=== PATIENT | male | born 1955 | race Caucasian/White ===

== ENCOUNTER 2021-05-27 18:25 | Inpatient (IN) | payer OTHER ==
[2021-05-27 19:11] VITALS: BMI 15.7
[2021-05-27] MEDS ORDERED: NALOXONE (NARCAN) HCL 4 MG/0.1 ML SPRAY NS PRN (21:20)
[2021-05-27] MEDS ORDERED: P-EPHED 60MG/TRIPROLIDI 2.5MG TABLET PO PRN (21:20)
[2021-05-27] MEDS ORDERED: MENTHOL/PHENOL 1 EACH UD MM PRN (21:20)
[2021-05-27] MEDS ORDERED: ONDANSETRON *ODT* 4 MG TABLET SL PRN (21:20)
[2021-05-27] MEDS ORDERED: MAGNESIUM HYDROX 2400MG/30ML ORAL SUSPENSION 30 ML CUP PO PRN (21:20)
[2021-05-27] MEDS ORDERED: MAGNESIUM CITRATE 300 ML BOTTLE PO PRN (21:20)
[2021-05-27] MEDS ORDERED: NALOXONE HCL 0.4 MG/ML VIAL IM PRN (21:20)
[2021-05-27] MEDS ORDERED: ACETAMINOPHEN 325 MG TABLET (FP) PO PRN ×2 (21:20)
[2021-05-27] MEDS ORDERED: NICOTINE POLACRILEX 2 MG GUM BUC PRN (21:20)
[2021-05-27] MEDS ORDERED: guaiFENesin 200 MG/10 ML 10 ML UNIT-DOSE CUPS PO PRN (21:20)
[2021-05-27] MEDS ORDERED: BISMUTH SUBSALICYLATE 524 MG/30 ML PO PRN (21:20)
[2021-05-27] MEDS ORDERED: ALBUTEROL SO4 0.083% IH SOL 2.5 MG/3 ML VIAL.NEB. NEB ONE (22:04)
[2021-05-27] MEDS: MELATONIN 5 MG TABLETS PO SCH (22:49)
[2021-05-27] MEDS: THIAMINE HCL 100 MG TABLET (FP) PO SCH (22:49)
[2021-05-28] MEDS ORDERED: ALBUTEROL SO4 HFA INHALER IH ONE (00:45)
[2021-05-28] MEDS: ALBUTEROL SO4 HFA INHALER IH PRN ×3 (00:48→12:12)
[2021-05-28 09:24] LABS: HEMOGLOBIN 10.6 GM/dL (11.7-16.9); MCH 29.3 pg (25.7-33.7); MCHC 33.3 g/dl (32.0-35.9); MEAN PLT VOLUME 6.5 fl (7.5-11.1); PLATELET COUNT 282 10^3/uL (134-434); RBC 3.64 M/mm3 (4.00-5.60); RDW 20.7 % (11.9-15.9)
[2021-05-28 10:03] LABS: ALBUMIN 3.2 g/dl (3.4-5.0); BLOOD UREA NITROGEN 23.2 mg/dL (7-18); CALCIUM 8.3 mg/dL (8.5-10.1)
[2021-05-28 10:08] LABS: BILIRUBIN,TOTAL 0.3 mg/dL (0.2-1); TOT PROT 6.3 g/dl (6.4-8.2)
[2021-05-28 10:10] LABS: CREATININE 0.7 mg/dL (0.55-1.3)
[2021-05-28] MEDS: PRENATAL VITAMINS W/ FOLIC ACID TABLET (FP) PO SCH (11:00)
[2021-05-28] MEDS ORDERED: ALBUTEROL SO4 0.083% IH SOL 2.5 MG/3 ML VIAL.NEB. NEB PRN (11:37)
[2021-05-28] MEDS ORDERED: METHADONE HCL 10 MG TABLET (FOR DETOX USE ONLY) PO ONE ×2 (12:00→18:00)
[2021-05-28] MEDS: DICYCLOMINE HCL 10 MG CAPSULE PO PRN (17:56)
[2021-05-28] MEDS: MELATONIN 5 MG TABLETS PO SCH (23:30)
[2021-05-28] MEDS: THIAMINE HCL 100 MG TABLET (FP) PO SCH (23:30)
[2021-05-29] MEDS: ALBUTEROL SO4 HFA INHALER IH PRN ×3 (08:20→23:43)
[2021-05-29] MEDS ORDERED: METHADONE HCL 10 MG TABLET (FOR DETOX USE ONLY) ONE (09:12)
[2021-05-29] MEDS ORDERED: METHADONE HCL 5 MG TABLET (FOR DETOX USE ONLY) ONE (09:12)
[2021-05-29] MEDS: PRENATAL VITAMINS W/ FOLIC ACID TABLET (FP) PO SCH (09:47)
[2021-05-29] MEDS: MAG HYDROX/AL HYDROX/SIMETH 30 ML UNIT-DOSE CUP PO PRN ×2 (09:47→17:16)
[2021-05-29] MEDS: METHOCARBAMOL 500 MG TABLET PO PRN (09:48)
[2021-05-29] MEDS ORDERED: METHADONE (DETOX) 10 MG, METHADONE (DETOX) 5 MG PO ONE (10:00)
[2021-05-29 10:07] LABS: BLOOD UREA NITROGEN 19.1 mg/dL (7-18)
[2021-05-29] MEDS ORDERED: COVID-19 VAC,AD26(JANSSEN)/PF 0.5 ML IM ONE (13:00)
[2021-05-29] MEDS ORDERED: diazePAM 5 MG TABLET PO PRN (13:17)
[2021-05-29] MEDS: DICYCLOMINE HCL 10 MG CAPSULE PO PRN (17:16)
[2021-05-29] MEDS: THIAMINE HCL 100 MG TABLET (FP) PO SCH (22:27)
[2021-05-29] MEDS: MELATONIN 5 MG TABLETS PO SCH (22:27)
[2021-05-30] MEDS ORDERED: METHADONE HCL 10 MG TABLET (FOR DETOX USE ONLY) ONE (09:13)
[2021-05-30] MEDS ORDERED: METHADONE HCL 5 MG TABLET (FOR DETOX USE ONLY) ONE (09:13)
[2021-05-30] MEDS ORDERED: METHADONE (DETOX) 10 MG, METHADONE (DETOX) 5 MG PO ONE (10:00)
[2021-05-30] MEDS: PRENATAL VITAMINS W/ FOLIC ACID TABLET (FP) PO SCH (10:17)
[2021-05-30] MEDS: FERROUS SO4 325 MG TABLET (FP) PO SCH (10:17)
[2021-05-30] MEDS: ALBUTEROL SO4 HFA INHALER IH PRN ×2 (14:44→21:15)
[2021-05-30] MEDS: IBUPROFEN 400 MG TABLET (FP) PO PRN (20:10)
[2021-05-30] MEDS: MELATONIN 5 MG TABLETS PO SCH (22:23)
[2021-05-30] MEDS: METHOCARBAMOL 500 MG TABLET PO PRN (22:23)
[2021-05-30] MEDS: THIAMINE HCL 100 MG TABLET (FP) PO SCH (22:23)
[2021-05-31] MEDS: ALBUTEROL SO4 HFA INHALER IH PRN ×2 (08:07→18:46)
[2021-05-31] MEDS ORDERED: METHADONE HCL 10 MG TABLET (FOR DETOX USE ONLY) PO ONE (10:00)
[2021-05-31] MEDS: PRENATAL VITAMINS W/ FOLIC ACID TABLET (FP) PO SCH (10:28)
[2021-05-31] MEDS: FERROUS SO4 325 MG TABLET (FP) PO SCH (10:28)
[2021-05-31] MEDS: METHOCARBAMOL 500 MG TABLET PO PRN ×2 (10:28→18:46)
[2021-05-31] MEDS: MAG HYDROX/AL HYDROX/SIMETH 30 ML UNIT-DOSE CUP PO PRN (20:18)
[2021-05-31] MEDS: MELATONIN 5 MG TABLETS PO SCH (22:04)
[2021-05-31] MEDS: THIAMINE HCL 100 MG TABLET (FP) PO SCH (22:04)
[2021-06-01] MEDS ORDERED: METHADONE HCL 10 MG TABLET (FOR DETOX USE ONLY) PO ONE (05:00)
[2021-06-01] MEDS ORDERED: METHADONE HCL 5 MG TABLET PO ONE (05:00)
[2021-06-01] MEDS: FERROUS SO4 325 MG TABLET (FP) PO SCH (10:16)
[2021-06-01] MEDS: PRENATAL VITAMINS W/ FOLIC ACID TABLET (FP) PO SCH (10:16)
[2021-06-01] MEDS: IBUPROFEN 400 MG TABLET (FP) PO PRN (12:34)
[2021-06-01] MEDS: METHOCARBAMOL 500 MG TABLET PO PRN (12:34)
[2021-06-01 13:00] VITALS: BP 94/62; PULSE 94; TEMP 98.1
[2021-06-01] MEDS: ALBUTEROL SO4 HFA INHALER IH PRN (14:47)
== END 2021-06-01 15:14 | disposition other institution (70) | DRG 773 ==
LOC: YASAS 18:25 → Y6N 21:37
PROVIDERS: ADMIT Allergy & Immunology; ATTEND Allergy & Immunology
PROC: HZ2ZZZZ Detoxification Services for Substance Abuse Treatment (ICD-10-PCS; principal; 2021-05-27)
DX: F11.23 Opioid dependence with withdrawal (principal); F19.282 Other psychoactive substance dependence with psychoactive substance-induced sleep disorder; F42.4 Excoriation (skin-picking) disorder; Z21 Asymptomatic human immunodeficiency virus [HIV] infection status; J45.909 Unspecified asthma, uncomplicated; B18.2 Chronic viral hepatitis C; Z87.891 Personal history of nicotine dependence; Z91.81 History of falling; Z99.89 Dependence on other enabling machines and devices; Z91.010 Allergy to peanuts
CPT/HCPCS: 0031A; 36415; 80053; 82607; 83540; 84520; 85027; 86780; 91303; 93005; 93010; 94640; C9803; Q0162; U0003; U0005

== ENCOUNTER 2021-06-01 15:30 | Inpatient (IN) | payer OTHER ==
[2021-06-01] MEDS ORDERED: ACETAMINOPHEN 325 MG TABLET (FP) PO PRN (16:43)
[2021-06-01] MEDS ORDERED: NICOTINE POLACRILEX 2 MG GUM BUC PRN (16:43)
[2021-06-01] MEDS ORDERED: P-EPHED 60MG/TRIPROLIDI 2.5MG TABLET PO PRN (16:43)
[2021-06-01] MEDS ORDERED: MAGNESIUM CITRATE 300 ML BOTTLE PO PRN (16:43)
[2021-06-01] MEDS ORDERED: MENTHOL/PHENOL 1 EACH UD MM PRN (16:43)
[2021-06-01] MEDS ORDERED: LOPERAMIDE HCL 2 MG CAPSULE PO PRN (16:43)
[2021-06-01] MEDS ORDERED: MAGNESIUM HYDROX 2400MG/30ML ORAL SUSPENSION 30 ML CUP PO PRN (16:43)
[2021-06-01] MEDS ORDERED: guaiFENesin 200 MG/10 ML 10 ML UNIT-DOSE CUPS PO PRN (16:43)
[2021-06-01] MEDS: IBUPROFEN 400 MG TABLET (FP) PO PRN (17:08)
[2021-06-01] MEDS: ALBUTEROL SO4 HFA INHALER IH PRN (18:05)
[2021-06-01] MEDS: hydrOXYzine PAMOATE 25 MG CAPSULE (FP) PO PRN (21:17)
[2021-06-01] MEDS: MELATONIN 5 MG TABLETS PO SCH (21:17)
[2021-06-01] MEDS: THIAMINE HCL 100 MG TABLET (FP) PO SCH (21:17)
[2021-06-01] MEDS: BACITRACIN 0.9 GM PACKET TP SCH (21:18)
[2021-06-02] MEDS: PRENATAL VITAMINS W/ FOLIC ACID TABLET (FP) PO SCH (09:24)
[2021-06-02] MEDS: BACITRACIN 0.9 GM PACKET TP SCH ×2 (09:24→21:03)
[2021-06-02] MEDS: NICOTINE 7 MG/24 HOURS TOPICAL PATCH TD SCH (09:24)
[2021-06-02] MEDS: IBUPROFEN 400 MG TABLET (FP) PO PRN (09:25)
[2021-06-02] MEDS ORDERED: PT OWN MED DRAWER 7, Y5N ONE (18:55)
[2021-06-02] MEDS: ALBUTEROL SO4 HFA INHALER IH PRN ×2 (18:57→23:12)
[2021-06-02] MEDS: hydrOXYzine PAMOATE 25 MG CAPSULE (FP) PO PRN (21:03)
[2021-06-02] MEDS: MELATONIN 5 MG TABLETS PO SCH (21:03)
[2021-06-02] MEDS: THIAMINE HCL 100 MG TABLET (FP) PO SCH (21:03)
[2021-06-03] MEDS: ALBUTEROL SO4 HFA INHALER IH PRN ×4 (08:12→22:58)
[2021-06-03] MEDS: NICOTINE 7 MG/24 HOURS TOPICAL PATCH TD SCH (09:33)
[2021-06-03] MEDS: PRENATAL VITAMINS W/ FOLIC ACID TABLET (FP) PO SCH (09:33)
[2021-06-03] MEDS: BACITRACIN 0.9 GM PACKET TP SCH ×2 (09:33→21:17)
[2021-06-03] MEDS: MAG HYDROX/AL HYDROX/SIMETH 30 ML UNIT-DOSE CUP PO PRN (18:41)
[2021-06-03] MEDS: hydrOXYzine PAMOATE 25 MG CAPSULE (FP) PO PRN (21:17)
[2021-06-03] MEDS: THIAMINE HCL 100 MG TABLET (FP) PO SCH (21:17)
[2021-06-03] MEDS: MELATONIN 5 MG TABLETS PO SCH (21:17)
[2021-06-03] MEDS: IBUPROFEN 400 MG TABLET (FP) PO PRN (22:59)
[2021-06-04] MEDS: ALBUTEROL SO4 HFA INHALER IH PRN ×3 (07:57→19:18)
[2021-06-04] MEDS: PRENATAL VITAMINS W/ FOLIC ACID TABLET (FP) PO SCH (09:48)
[2021-06-04] MEDS: NICOTINE 7 MG/24 HOURS TOPICAL PATCH TD SCH (09:48)
[2021-06-04] MEDS: BACITRACIN 0.9 GM PACKET TP SCH ×2 (09:48→21:06)
[2021-06-04] MEDS: hydrOXYzine PAMOATE 25 MG CAPSULE (FP) PO PRN ×2 (13:10→20:15)
[2021-06-04] MEDS: ALBUTEROL SO4 0.083% IH SOL 2.5 MG/3 ML VIAL.NEB. NEB PRN (17:13)
[2021-06-04] MEDS: IBUPROFEN 400 MG TABLET (FP) PO PRN (19:17)
[2021-06-04] MEDS: THIAMINE HCL 100 MG TABLET (FP) PO SCH (21:05)
[2021-06-04] MEDS: MELATONIN 5 MG TABLETS PO SCH (21:05)
[2021-06-05] MEDS ORDERED: PT OWN MED DRAWER 7, Y5N ONE ×2 (01:38→09:19)
[2021-06-05 07:02] VITALS: BP 105/72; PULSE 95; TEMP 97.6
[2021-06-05] MEDS: MAG HYDROX/AL HYDROX/SIMETH 30 ML UNIT-DOSE CUP PO PRN (07:11)
[2021-06-05] MEDS: ALBUTEROL SO4 HFA INHALER IH PRN (09:19)
[2021-06-05] MEDS: PRENATAL VITAMINS W/ FOLIC ACID TABLET (FP) PO SCH (09:20)
[2021-06-05] MEDS: BACITRACIN 0.9 GM PACKET TP SCH (09:20)
[2021-06-05] MEDS: NICOTINE 7 MG/24 HOURS TOPICAL PATCH TD SCH (09:20)
[2021-06-05] MEDS: ALBUTEROL SO4 0.083% IH SOL 2.5 MG/3 ML VIAL.NEB. NEB PRN (10:09)
== END 2021-06-05 10:55 | disposition home or self-care (01) | DRG 773 ==
LOC: YASAS 15:30 → Y5N 15:35
PROVIDERS: ADMIT Allergy & Immunology; ATTEND Allergy & Immunology
PROC: HZ2ZZZZ Detoxification Services for Substance Abuse Treatment (ICD-10-PCS; principal; 2021-06-01)
DX: F11.20 Opioid dependence, uncomplicated (principal); F17.210 Nicotine dependence, cigarettes, uncomplicated; F42.4 Excoriation (skin-picking) disorder; Z21 Asymptomatic human immunodeficiency virus [HIV] infection status; R64 Cachexia; D50.9 Iron deficiency anemia, unspecified; J45.20 Mild intermittent asthma, uncomplicated; R26.2 Difficulty in walking, not elsewhere classified; Z99.89 Dependence on other enabling machines and devices
CPT/HCPCS: 94640

== ENCOUNTER 2021-10-13 12:58 | Inpatient (IN) | payer OTHER ==
[2021-10-13] MEDS ORDERED: MAGNESIUM HYDROX 2400MG/30ML ORAL SUSPENSION 30 ML CUP PO PRN (13:33)
[2021-10-13] MEDS ORDERED: MAG HYDROX/AL HYDROX/SIMETH 30 ML UNIT-DOSE CUP PO PRN (13:33)
[2021-10-13] MEDS ORDERED: ONDANSETRON *ODT* 4 MG TABLET SL PRN (13:33)
[2021-10-13] MEDS ORDERED: ACETAMINOPHEN 325 MG TABLET (FP) PO PRN ×2 (13:33)
[2021-10-13] MEDS ORDERED: cloNIDine HCL 0.1 MG TABLET PO PRN (13:33)
[2021-10-13] MEDS ORDERED: MAGNESIUM CITRATE 300 ML BOTTLE PO PRN (13:33)
[2021-10-13] MEDS ORDERED: IBUPROFEN 400 MG TABLET (FP) PO PRN (13:33)
[2021-10-13] MEDS ORDERED: MENTHOL/PHENOL 1 EACH UD MM PRN (13:33)
[2021-10-13] MEDS ORDERED: NICOTINE 10 MG CARTRIDGE (INHALER) IH PRN (13:33)
[2021-10-13] MEDS ORDERED: METHOCARBAMOL 500 MG TABLET PO PRN (13:33)
[2021-10-13] MEDS ORDERED: methaDONE HCL 10 MG TABLET (FOR DETOX USE ONLY) PO ONE (13:33)
[2021-10-13] MEDS ORDERED: BISMUTH SUBSALICYLATE 262 MG/15 ML BTL PO PRN (13:33)
[2021-10-13 13:43] VITALS: BMI 15.3
[2021-10-13] MEDS: NICOTINE 14 MG/24 HOURS TOPICAL PATCH TD SCH (15:17)
[2021-10-13] MEDS: PRENATAL VITAMINS W/ FOLIC ACID TABLET (FP) PO SCH (15:17)
[2021-10-13 16:56] LABS: HEMATOCRIT 36.6 % (35.4-49); MCH 30.5 pg (25.7-33.7); MCHC 32.8 g/dl (32.0-35.9); MEAN CELL VOLUME 92.8 fl (80-96); MEAN PLT VOLUME 6.6 fl (7.5-11.1); PLATELET COUNT 290 10^3/uL (134-434); RBC 3.95 M/mm3 (4.00-5.60); RDW 16.9 % (11.9-15.9); WHITE BLOOD COUNT 5.7 K/mm3 (4.0-10.0)
[2021-10-13 16:58] LABS: ALBUMIN 3.6 g/dl (3.4-5.0); BLOOD UREA NITROGEN 29.8 mg/dL (7-18)
[2021-10-13 17:01] LABS: CREATININE 0.9 mg/dL (0.55-1.3)
[2021-10-13 17:02] LABS: BILIRUBIN,TOTAL 0.4 mg/dL (0.2-1); TOT PROT 7.1 g/dl (6.4-8.2)
[2021-10-13] MEDS: ALBUTEROL SO4 HFA INHALER IH PRN (17:24)
[2021-10-13] MEDS: MELATONIN 5 MG TABLETS PO SCH (22:29)
[2021-10-13] MEDS: THIAMINE HCL 100 MG TABLET (FP) PO SCH (22:29)
[2021-10-13] MEDS: BUDESONIDE/FORMETEROL FUMARATE 80/4.5 mcg INHALER IH SCH (22:30)
[2021-10-13] MEDS: BACITRACIN 0.9 GM PACKET TP SCH (22:30)
[2021-10-14] MEDS ORDERED: methaDONE HCL 10 MG TABLET (FOR DETOX USE ONLY) ONE (08:45)
[2021-10-14] MEDS: ALBUTEROL SO4 HFA INHALER IH PRN ×2 (08:47→17:23)
[2021-10-14] MEDS: NICOTINE 14 MG/24 HOURS TOPICAL PATCH TD SCH (10:25)
[2021-10-14] MEDS: PRENATAL VITAMINS W/ FOLIC ACID TABLET (FP) PO SCH (10:25)
[2021-10-14] MEDS: BUDESONIDE/FORMETEROL FUMARATE 80/4.5 mcg INHALER IH SCH ×2 (10:25→22:12)
[2021-10-14] MEDS: BACITRACIN 0.9 GM PACKET TP SCH ×2 (10:25→22:12)
[2021-10-14] MEDS ORDERED: PNEUMOCOCCAL 23 VACCINE 0.5 ML VIAL IM ONE (15:33)
[2021-10-14] MEDS: MELATONIN 5 MG TABLETS PO SCH (22:12)
[2021-10-14] MEDS: THIAMINE HCL 100 MG TABLET (FP) PO SCH (22:12)
[2021-10-15] MEDS: ALBUTEROL SO4 HFA INHALER IH PRN ×2 (05:15→15:36)
[2021-10-15] MEDS: BUDESONIDE/FORMETEROL FUMARATE 80/4.5 mcg INHALER IH SCH ×3 (08:33→22:10)
[2021-10-15] MEDS: hydrOXYzine PAMOATE 25 MG CAPSULE (FP) PO PRN (08:55)
[2021-10-15] MEDS ORDERED: methaDONE HCL 10 MG TABLET (FOR DETOX USE ONLY) PO ONE (10:00)
[2021-10-15] MEDS: PRENATAL VITAMINS W/ FOLIC ACID TABLET (FP) PO SCH (10:20)
[2021-10-15] MEDS: BACITRACIN 0.9 GM PACKET TP SCH ×2 (10:20→22:10)
[2021-10-15] MEDS: NICOTINE 14 MG/24 HOURS TOPICAL PATCH TD SCH (10:21)
[2021-10-15] MEDS ORDERED: PNEUMOC 13-VAL CONJ-DIP CRM/PF 0.5 ML DISP.SYRIN IM ONE (12:00)
[2021-10-15] MEDS: THIAMINE HCL 100 MG TABLET (FP) PO SCH (22:10)
[2021-10-15] MEDS: MELATONIN 5 MG TABLETS PO SCH (22:10)
[2021-10-16] MEDS ORDERED: methaDONE HCL 10 MG TABLET (FOR DETOX USE ONLY) ONE (08:58)
[2021-10-16] MEDS: BACITRACIN 0.9 GM PACKET TP SCH ×2 (10:25→22:16)
[2021-10-16] MEDS: PRENATAL VITAMINS W/ FOLIC ACID TABLET (FP) PO SCH (10:25)
[2021-10-16] MEDS: BUDESONIDE/FORMETEROL FUMARATE 80/4.5 mcg INHALER IH SCH ×2 (10:25→22:17)
[2021-10-16] MEDS: NICOTINE 14 MG/24 HOURS TOPICAL PATCH TD SCH (10:27)
[2021-10-16] MEDS: ALBUTEROL SO4 HFA INHALER IH PRN ×2 (12:56→16:43)
[2021-10-16] MEDS: hydrOXYzine PAMOATE 25 MG CAPSULE (FP) PO PRN (17:43)
[2021-10-16] MEDS: MELATONIN 5 MG TABLETS PO SCH (22:16)
[2021-10-16] MEDS: THIAMINE HCL 100 MG TABLET (FP) PO SCH (22:16)
[2021-10-17] MEDS ORDERED: methaDONE HCL 10 MG TABLET (FOR DETOX USE ONLY) PO ONE (10:00)
[2021-10-17] MEDS: BACITRACIN 0.9 GM PACKET TP SCH ×2 (10:10→22:11)
[2021-10-17] MEDS: NICOTINE 14 MG/24 HOURS TOPICAL PATCH TD SCH (10:11)
[2021-10-17] MEDS: BUDESONIDE/FORMETEROL FUMARATE 80/4.5 mcg INHALER IH SCH ×2 (10:11→22:10)
[2021-10-17] MEDS: PRENATAL VITAMINS W/ FOLIC ACID TABLET (FP) PO SCH (10:11)
[2021-10-17] MEDS: ALBUTEROL SO4 HFA INHALER IH PRN (18:10)
[2021-10-17] MEDS: MELATONIN 5 MG TABLETS PO SCH (22:10)
[2021-10-17] MEDS: THIAMINE HCL 100 MG TABLET (FP) PO SCH (22:11)
[2021-10-17] MEDS: hydrOXYzine PAMOATE 25 MG CAPSULE (FP) PO PRN (22:11)
[2021-10-18] MEDS: ALBUTEROL SO4 HFA INHALER IH PRN (08:19)
[2021-10-18 08:51] VITALS: BP 85/56; PULSE 69; TEMP 97.3
== END 2021-10-18 09:15 | disposition home or self-care (01) | DRG 897 ==
LOC: YASAS 12:58 → Y3N 14:44
PROVIDERS: ADMIT Allergy & Immunology; ATTEND Allergy & Immunology
PROC: HZ2ZZZZ Detoxification Services for Substance Abuse Treatment (ICD-10-PCS; principal; 2021-10-13)
DX: F11.23 Opioid dependence with withdrawal (principal); Z68.1 Body mass index [BMI] 19.9 or less, adult; F17.210 Nicotine dependence, cigarettes, uncomplicated; Z21 Asymptomatic human immunodeficiency virus [HIV] infection status; J45.20 Mild intermittent asthma, uncomplicated; B18.2 Chronic viral hepatitis C; R63.4 Abnormal weight loss; R79.89 Other specified abnormal findings of blood chemistry; Z99.89 Dependence on other enabling machines and devices; Z88.8 Allergy status to other drugs, medicaments and biological substances; Z91.010 Allergy to peanuts
CPT/HCPCS: 36415; 80053; 82962; 84520; 85027; 86780; 90670; C9803; Q0162; U0003; U0005